=== PATIENT | female | born 1990 | race Two or more races ===

== ENCOUNTER 2023-12-28 20:29 | Emergency (ER) | payer MEDICAID, OTHER ==
[~2023-12-28] VITALS: Ht 167.6 cm; Wt 76.8 kg
[2023-12-28 20:36] VITALS: BP 112/74; PULSE 88; RESP 16; TEMP 97.5
[2023-12-28] MEDS ORDERED: PRED20TA2 PO (21:33)
[2023-12-28 21:50] VITALS: O2SAT 98
== END 2023-12-28 22:03 | disposition home or self-care (01) ==
LOC: ER 20:29
DX: L50.9 Urticaria, unspecified (principal)